=== PATIENT | male | born 1995 | race Caucasian/White ===

== ENCOUNTER 2019-05-04 21:02 | Observation (INO) | payer OTHER ==
[~2019-05-04] VITALS: Ht 188 cm; Wt 86.4 kg
[2019-05-04 23:26] LABS: BASO # 0.1 (0.0-0.2); BASO % 0.5 % (0.0-2.0); EOS # 0.3 (0.0-0.7); EOS % 2.9 % (0-4.0); GRAN # 7.4 (1.4-6.5); GRAN % 75.6 % (42.2-75.2); HEMOGLOBIN 16.3 g/dl (13.5-18.0); LYMPH # 1.2 (1.2-3.4); LYMPH % 12.6 % (20.0-51.0); MEAN CELL VOLUME 88 fl (80.0-100.0); MEAN CORPUSCULAR HEMOGLOBIN 29 pg (27.0-31.0); MEAN CORPUSCULAR HGB CONC 33 g/dl (33.0-37.0); MEAN PLATELET VOLUME 9.8 fl (7.4-10.4); MONO # 0.8 (0.1-0.6); MONO % 8.2 % (1.7-9.3); PLATELET COUNT 279 K/mm3 (130-400); RED BLOOD COUNT 5.59 M/mm3 (4.20-5.60)
[2019-05-04 23:30] VITALS: BP 145/72; PULSE 81; TEMP 98
[2019-05-04 23:34] VITALS: BP 145/72; PULSE 81; TEMP 98
[2019-05-04 23:38] LABS: ALANINE AMINOTRANSFERASE 22 U/L (21-72); ALBUMIN 5.1 gm/dL (3.5-5.0); ALKALINE PHOSPHATASE 68 U/L (50-136); ANION GAP 11 mmol/L (7-16); AST,SGOT 30 U/L (15-37); BLOOD UREA NITROGEN 17 mg/dL (9-20); CALCIUM 9.8 mg/dL (8.4-10.2); CARBON DIOXIDE 29 mmol/L (22-30); CHLORIDE 102 mmol/L (98-107); GLUCOSE 96 mg/dL (74-106); POTASSIUM 3.9 mmol/L (3.4-5.0); SODIUM 142 mmol/L (137-145); TOTAL PROTEIN 7.9 gm/dL (6.4-8.2)
[2019-05-04 23:43] LABS: C-REACTIVE PROTEIN < 0.5 mg/dL (0.0-0.9)
--- NOTE | 2019-05-04 23:53 | NUR ---
PT ARRIVED TO FLOOR, IN BED, EDUCATED HOW TO USE PHONE, TV, CALL LIGHT, AND ADJUST BED. ASSESSMENT UNEVENTFUL. TABLE AND CALL LIGHT AT BEDSIDE BED IN LOWEST POSITION, PT REQUESTED TO STAY IN CLOTHES, WALLET ON PERSON, DID NOT WANT TO USE SAFE, MADE AWARE OF NPO AFTER MIDNIGHT, PT STATES PAIN OF 1 WITH SWALLOWING, NKA OR HOME MEDICATIONS. REQUESTED PHONE QC SCIENTIST, PT DENIES ANY OTHER NEEDS AT THIS TIME.
[2019-05-05 04:00] VITALS: BP 155/72; PULSE 64; TEMP 98.8
[2019-05-05 04:20] VITALS: BP 132/81; PULSE 102; TEMP 98.6
--- NOTE | 2019-05-05 05:08 | NUR ---
PT HAD ONE EPISODE OF EMESIS, CLAIMS NO NAUSEA AFTERWARDS, AFEBRILE, SLIGHTLY HYPERTENSIVE DURING SHIFT. DENYING PAIN OR DISCOMFORT, NPO SINCE MIDNIGHT, CALL LIGHT AND TABLE AT BEDSIDE, IV FLUIDS RUNNING,BED IN LOWEST POSITION, NO OTHER NEEDS AT THIS TIME.
[2019-05-05 08:45] VITALS: BP 113/53; PULSE 99; TEMP 98.3
[2019-05-05 11:26] VITALS: BP 111/65; PULSE 87; TEMP 98.4
--- NOTE | 2019-05-05 11:55 | NUR ---
Pt assessment completed and charted. Pt has [employer] student providing cares this morning. Pt is A&O, independent in room. NS at 125 ml/hr running to LAC w/o complications. Pt on room air, breathing is even and unlabored. Pt denies pain at this time, "just thirsty". Anesthesia saw pt this morning and stated he could have some water until 1130, EGD procedure is scheduled 1430 today. Pt denies any difficutly breathing at this time, was able to sip on water, no big gulps, but still has the difficulty/discomfort of swallowing. Consent for procedure signed and on chart. No other concerns expressed at this time.
--- NOTE | 2019-05-05 13:09 | NUR ---
Initial visit; Patient thanked for stopping in and making sure his mother who was inquiring about his room number earlier, found him. Stock Mixer wished him well.
--- NOTE | 2019-05-05 13:31 | NUR ---
Asssited Christina GILL with patient care this from 0700 to 1330. VS stable this day. Patient had shower this day. No PRN meds given. Report given Christina GILL of care given.
--- NOTE | 2019-05-05 13:57 | NUR ---
Primary nurse was assisted with [id number] patient care by [employer] student Stacy Cole and [employer] instructor Noemi Rodriguez RN-BC.
--- NOTE | 2019-05-05 14:08 | NUR ---
pt down for procedure at this time.
--- NOTE | 2019-05-05 16:17 | NUR ---
Pt back from procedure, hooked up to post op vitals. Pt denies any pain, doing well. LEOBARDO Landeros notified of pt arrival back to floor.
--- NOTE | 2019-05-05 16:32 | NUR ---
Fan Mail Clerk met with patient and patient's mother Rizwana (ph#[phone]) to discuss discharge planning. Patient lives in [place] with three roommates and is a student at [employer]. HARINDER informed patient that SW will contact the [employer] [facility] [employer] to notify them of hospitalization but that it is patient's responsibility to inform his professors if he misses class. Patient verbalized understanding. Patient's primary care physician is Dr. Hall from [place], [place]. Patient obtains medications from [facility]. Patient does not use any DME and is independent with ADLS. Patient to return home upon discharge. Rizwana reports she provided insurance card to Logan, Financial Counselor. HARINDER contacted [employer] [facility] [employer] to provide notification of hospitalization. No additional needs at this time.
--- NOTE | 2019-05-05 18:47 | NUR ---
Pt diet advanced to general, denies any sig. pain at this time. Tolerating small sips of fluids. VSS.
[2019-05-05 19:52] VITALS: BP 131/68; PULSE 92; TEMP 98.3
--- NOTE | 2019-05-05 22:24 | NUR ---
PT IN BED WITH FOOD AT BEDSIDE. PT ATE 20%, HAS MULTIPLE DRINKS AT BEDSIDE ALONG WITH CALL LIGHT AND TABLE, BED IN LOWEST POSITION, DENYING PAIN OR DISCOMFORT, OVERALL VERY PLEASANT, ASSESSMENT UNREMARKABLE. FLUIDS HUNG, PROTONIX GIVEN. PT ASKED ABOUT RECEIVING INHALER AND HOW TO USE IT. INFORMED PT HE WOULD GET IT FROM THE PHARMACY OF HIS CHOICE AND HE COULD ASK THE PHARMACIST ON PROPER ADMINISTRATION, LOOKED FOR NOTE OF INHALER IN CHART TO SEE IF I COULD HELP HIM AND I WAS UNABLE TO FIND AN ORDER FOR A NEW INHALER. NO OTHER NEEDS AT THIS TIME.
[2019-05-05 23:35] VITALS: BP 112/66; PULSE 92; TEMP 98.1
[2019-05-06 04:20] VITALS: BP 108/59; PULSE 84; TEMP 98.6
--- NOTE | 2019-05-06 05:01 | NUR ---
PT SLEEPING MOST OF NIGHT, DENYING PAIN OR DISCOMFORT, TABLE AND CALL LIGHT WITHIN REACH, BED IN LOWEST POSITION, UNEVENTFUL SHIFT, PT STATES NO OTHER NEEDS AT THIS TIME.
--- NOTE | 2019-05-06 07:00 | NUR ---
Report received from JAIRO Paniagua. PT in bed resting, denies needs,w ill continue to monitor.
[2019-05-06 07:14] LABS: BASO % 0.4 % (0.0-2.0); EOS # 0.2 (0.0-0.7); EOS % 4.4 % (0-4.0); GRAN % 62.8 % (42.2-75.2); HEMATOCRIT 43.5 % (42.0-52.0); LYMPH # 0.9 (1.2-3.4); LYMPH % 19.1 % (20.0-51.0); MEAN CELL VOLUME 89 fl (80.0-100.0); MEAN CORPUSCULAR HEMOGLOBIN 29 pg (27.0-31.0); MEAN CORPUSCULAR HGB CONC 32 g/dl (33.0-37.0); MEAN PLATELET VOLUME 10.1 fl (7.4-10.4); MONO # 0.6 (0.1-0.6); MONO % 13.1 % (1.7-9.3); PLATELET COUNT 185 K/mm3 (130-400); RED BLOOD COUNT 4.87 M/mm3 (4.20-5.60)
[2019-05-06 07:20] LABS: ALBUMIN 3.5 gm/dL (3.5-5.0); BILIRUBIN,TOTAL 1.2 mg/dL (0.0-1.0); CALCIUM 8.4 mg/dL (8.4-10.2); TOTAL PROTEIN 5.7 gm/dL (6.4-8.2)
[2019-05-06 07:26] LABS: HEMOGLOBIN 14.1 g/dl (13.5-18.0)
[2019-05-06] MEDS ORDERED: PRILOSEC 20MG20 MG PO (08:51)
[2019-05-06] MEDS ORDERED: FLOVENT 220MCG7.9 GM IH (09:01)
[2019-05-06 09:20] VITALS: BP 126/71; PULSE 84; TEMP 97.7
--- NOTE | 2019-05-06 09:52 | NUR ---
Assessment charted. PT feeling well, still has some discomfort in throat, disucssed in detail with mom and pateitn expectations and reviewed report [facility] findings on EGD. Disucssed discharge packet, reviewed f/u appointment and script sent to pharmacy. INT dc'd, tip intact. Pt left with all belongings, escorted out by myself, mom to drive home, criteria met.
--- NOTE | 2019-05-06 09:55 | NUR ---
Spoke with primary in r/t the 0900 medication to be given, awaiting on primary, and she stated, "patient has just discharged and he and his mom are picking up oral medication at pharmacy." At 0830 in with patient and did assessment, spoke of discharge teaching and that to follow up with the appointments that were made and if he had any questions with his treatment plan or medications that he will be taking. He stated, no, patient was able to give feedback of his understanding of the diagnosis and that he may need to eliminate some food or drinks that may irritate his throat and esophagus.
--- NOTE | 2019-05-06 11:29 | NUR ---
Primary nurse was assisted with [id number] patient care by [employer] student Stacy Cole and [facility] [employer] instructor Noemi Rodriguez RN-BC.
== END 2019-05-06 09:56 | disposition home or self-care (01) ==
LOC: COL.ER 21:02 → MEDICAL 22:45
PROVIDERS: Emergency Medicine; Physician Assistant; Student in an Organized Health Care Education/Training Program; ADMIT Hospitalist
DX: K22.2 Esophageal obstruction (principal); R13.10 Dysphagia, unspecified; Z91.040 Latex allergy status
CPT/HCPCS: 99232-AI; C9113; G0378; J2060; J2704; J7030; J7120